=== PATIENT | female | born 1985 | race Caucasian/White ===

== ENCOUNTER → 2023-07-15 | Day surgery (SDC) | payer OTHER ==
[~2023-07-15] VITALS: Ht 167.6 cm; Wt 61.2 kg
[~2023-07-15] MED LIST: AMOX-CLAV 875-1 EAC1 PO; AMOX1TAB5 PO; METRONIDAZOLE500 MG PO; PERCOCET 5-3251 EACH PO; PREVACID30 MG PO; RECTICARE30 GM TOP
== END | disposition home or self-care (01) ==
LOC: ER 07:02 → SEC-K 09:11 → CIR.AMB 09:11 → O/R 09:11 → ER 09:11 → EDSTATUS 10:30 → SEC-K 12:08 → O/R 12:08
PROVIDERS: ATTEND Emergency Medicine
DX: K61.0 Anal abscess (principal); K62.89 Other specified diseases of anus and rectum; Z88.6 Allergy status to analgesic agent; Z20.822 Contact with and (suspected) exposure to COVID-19

== ENCOUNTER 2023-10-25 05:45 | Day surgery (SDC) | payer OTHER ==
[2023-10-25] MEDS ORDERED: PERCOCET 5-3251 EACH PO (08:25)
[2023-10-25] MEDS ORDERED: RECTICARE30 GM TOP (08:27)
== END 2023-10-25 14:55 | disposition home or self-care (01) ==
LOC: CIR.AMB 05:45
PROVIDERS: ATTEND Surgery
DX: K60.3 Anal fistula (principal); R19.5 Other fecal abnormalities; I10 Essential (primary) hypertension; Z20.822 Contact with and (suspected) exposure to COVID-19; Z88.6 Allergy status to analgesic agent